=== PATIENT | female | born 1965 | race Caucasian/White ===

== ENCOUNTER 2017-05-09 07:53 | Inpatient (IN) | payer OTHER ==
[~2017-05-09] VITALS: Ht 160 cm; Wt 84.1 kg
[~2017-05-09 07:53] MED LIST: DIAZ5TAB4 PO; ESCI20TA PO; IBUP-1222 PO; LEVO50TA5 PO; LISI-167 PO
[2017-05-09] MEDS ORDERED: LACTATED RINGERS 1,000 ML IV SCH (08:02)
[2017-05-09] MEDS ORDERED: CEFAZOLIN 1,000 MG ONE (10:01)
[2017-05-09] MEDS ORDERED: BUPIVACAINE/PF 0.25% ONE (10:01)
[2017-05-09] MEDS ORDERED: PROPOFOL 50 ML ONE ×2 (10:01→12:04)
[2017-05-09] MEDS ORDERED: FENTANYL PF 100 MCG/2ML ONE ×2 (10:01→13:08)
[2017-05-09] MEDS ORDERED: ONDANSETRON 2MG/ML, 2ML ONE (10:01)
[2017-05-09] MEDS ORDERED: DEXAMETHASONE 4 MG/ML, 1ML ONE ×2 (10:01→10:03)
[2017-05-09] MEDS ORDERED: PROPOFOL 10 MG/ML, 20ML ONE (10:01)
[2017-05-09] MEDS ORDERED: LIDOCAINE-MPF 2% ,5ML ONE ×2 (10:01→12:05)
[2017-05-09] MEDS ORDERED: MIDAZOLAM 1 MG/ML, 2ML ONE (10:01)
[2017-05-09] MEDS ORDERED: KETOROLAC 60 MG/2 ML ONE (10:56)
[2017-05-09] MEDS ORDERED: SODIUM CHLORIDE 0.9% 100 ML ONE (10:56)
[2017-05-09] MEDS ORDERED: TRANEXAMIC ACID 100 MG/ML, 10ML ONE (10:56)
[2017-05-09] MEDS ORDERED: ROPivacaine/PF 0.2%, 10 ML ONE ×2 (10:56→10:58)
[2017-05-09] MEDS ORDERED: EPINEPHRINE 1 MG/ML, 1ML ONE (10:57)
[2017-05-09] MEDS: D5%-0.45% NACL 1,000 ML IV SCH ×2 (11:19→17:59)
[2017-05-09] MEDS ORDERED: KETAMINE 10 MG/ML, 20ML ONE (11:28)
[2017-05-09] MEDS ORDERED: HYDROmorphone 2 MG/ML, 1ML ONE (11:29)
[2017-05-09] MEDS ORDERED: HYDROmorphone 1 MG/ML, 1ML IV PRN ×2 (11:30→12:00)
[2017-05-09] MEDS ORDERED: ONDANSETRON 4 MG TABLET PO PRN (11:30)
[2017-05-09] MEDS: OXYcodone IR 5MG TABLET PO SCH ×3 (11:30→20:55)
[2017-05-09] MEDS ORDERED: BISACODYL 10 MG SUPP PR PRN (11:30)
[2017-05-09] MEDS ORDERED: DIPHENHYDRAMINE 50 MG CAPSULE PO PRN (11:30)
[2017-05-09] MEDS ORDERED: ZOLPIDEM 5MG TABLET PO PRN (11:30)
[2017-05-09] MEDS ORDERED: ONDANSETRON 2MG/ML, 2ML IV PRN (11:30)
[2017-05-09] MEDS ORDERED: DIAZEPAM 5 MG TABLET PO PRN (11:30)
[2017-05-09] MEDS ORDERED: ALUMINUM/MAG/SIMETHICONE 30 ML UDC PO PRN (11:30)
[2017-05-09] MEDS ORDERED: PROMETHAZINE 12.5 MG SUPP PR PRN (11:30)
[2017-05-09] MEDS ORDERED: PROMETHAZINE 25 MG/ML, 1ML IM PRN (11:30)
[2017-05-09] MEDS ORDERED: OXYcodone IR 5MG TABLET PO PRN (11:30)
[2017-05-09] MEDS: ACETAMINOPHEN 500 MG TABLET PO SCH ×2 (11:30→20:55)
[2017-05-09] MEDS ORDERED: SENNA/DOCUSATE TABLET PO PRN (11:30)
[2017-05-09] MEDS ORDERED: MAGNESIUM HYDROXIDE 8%, 30ML UDC PO PRN (11:30)
[2017-05-09] MEDS ORDERED: ONDANSETRON 2MG/ML, 2ML IVPush PRN (12:00)
[2017-05-09] MEDS ORDERED: ALBUTEROL/IPRATROPIUM 2.5MG/0.5MG, 3 ML NPPB PRN (12:00)
[2017-05-09] MEDS ORDERED: KETOROLAC 30 MG/1 ML IV PRN (12:00)
[2017-05-09] MEDS ORDERED: ACETAMINOPHEN 325 MG TABLET PO PRN (12:00)
[2017-05-09] MEDS ORDERED: OXYcodone 5 MG/5 ML ORAL.SOL UDC PO PRN (12:00)
[2017-05-09] MEDS ORDERED: MEPERIDINE/PF 25MG/0.5ML IVPush PRN (12:00)
[2017-05-09] MEDS ORDERED: DIAZEPAM 5 MG/ML, 2ML IVPush PRN (12:00)
[2017-05-09] MEDS ORDERED: PROMETHAZINE 25 MG/ML, 1ML IV PRN (12:00)
[2017-05-09] MEDS ORDERED: hydrALAzine 20 MG/ML, 1ML IV PRN (12:00)
[2017-05-09] MEDS ORDERED: MIDAZOLAM 1 MG/ML, 2ML IV PRN (12:00)
[2017-05-09] MEDS ORDERED: LABETALOL 5MG/ML, 20ML IV PRN (12:00)
[2017-05-09] MEDS ORDERED: FENTANYL PF 100 MCG/2ML IV PRN (12:00)
[2017-05-09] MEDS ORDERED: KETOROLAC 30 MG/1 ML ONE (12:03)
[2017-05-09] MEDS ORDERED: LABETALOL 5MG/ML, 20ML ONE (13:07)
[2017-05-09] MEDS ORDERED: ACETAMINOPHEN 650 MG/20.3 ML UDC ONE (13:07)
[2017-05-09] MEDS ORDERED: OXYcodone 5 MG/5 ML ORAL.SOL UDC ONE (13:07)
[2017-05-09] MEDS: TAMSULOSIN 0.4 MG CAP.ER.24H PO SCH ×2 (13:30→18:30)
[2017-05-09] MEDS ORDERED: TRANEXAMIC ACID 1,000 MG in SODIUM CHLORIDE 0.9% 100 ML IVPB ONE (13:30)
[2017-05-09] MEDS ORDERED: WINE PO SCH (18:00)
[2017-05-09] MEDS: ASPIRIN 81 MG TABLET EC PO SCH (18:26)
[2017-05-09] MEDS: CEFAZOLIN PMX 2GM/50ML 50 ML IVPB SCH (19:27)
[2017-05-09] MEDS: DOCUSATE 100 MG CAPSULE PO SCH (20:56)
[2017-05-09 21:15] VITALS: BP 119/76
[2017-05-09 23:44] VITALS: BP 120/70
[2017-05-10] MEDS: D5%-0.45% NACL 1,000 ML IV SCH ×2 (00:39→07:04)
[2017-05-10] MEDS: OXYcodone IR 5MG TABLET PO SCH ×3 (01:00→09:25)
[2017-05-10] MEDS: CEFAZOLIN PMX 2GM/50ML 50 ML IVPB SCH (03:17)
[2017-05-10 03:31] VITALS: BP 123/78
[2017-05-10 05:09] LABS: HEMOGLOBIN 11.8 g/dL (11.7-16.4)
[2017-05-10] MEDS: ACETAMINOPHEN 500 MG TABLET PO SCH (05:53)
[2017-05-10] MEDS: ASPIRIN 81 MG TABLET EC PO SCH (05:53)
[2017-05-10] MEDS: LEVOTHYROXINE 50 MCG TABLET PO SCH ×2 (05:53→09:27)
[2017-05-10] MEDS ORDERED: DEXAMETHASONE 4 MG/ML, 1ML IVPush SCH (06:00)
[2017-05-10 07:12] VITALS: BP 123/78
[2017-05-10] MEDS ORDERED: LISINOPRIL 10 MG TABLET PO SCH (09:00)
[2017-05-10] MEDS ORDERED: CITALOPRAM 20 MG TABLET PO SCH (09:00)
[2017-05-10] MEDS ORDERED: MULTIVITAMINS/MINERALS TABLET PO SCH (09:00)
[2017-05-10] MEDS: DOCUSATE 100 MG CAPSULE PO SCH (09:26)
[2017-05-10] MEDS: TAMSULOSIN 0.4 MG CAP.ER.24H PO SCH (09:27)
[2017-05-10] MEDS ORDERED: OXYC5CAP2 PO (09:43)
[2017-05-10] MEDS ORDERED: KETOROLAC 30 MG/1 ML IV SCH (11:30)
== END 2017-05-10 12:10 | disposition home or self-care (01) | DRG 470 ==
LOC: ORIP 07:53 → 4NOR 14:12 → DCLOUNGE 05-10 11:45
PROVIDERS: ADMIT Orthopaedic Surgery; ATTEND Orthopaedic Surgery
PROC: 0SRC0J9 Replacement of Right Knee Joint with Synthetic Substitute, Cemented, Open Approach (ICD-10-PCS; principal; 2017-05-09 11:00)
DX: M12.561 Traumatic arthropathy, right knee (principal); E03.9 Hypothyroidism, unspecified; M17.11 Unilateral primary osteoarthritis, right knee; Z60.2 Problems related to living alone; I10 Essential (primary) hypertension; F32.9 Major depressive disorder, single episode, unspecified; F10.20 Alcohol dependence, uncomplicated; Z79.899 Other long term (current) drug therapy
CPT/HCPCS: 36415; 85014; 85018; C1713; J0171; J0690; J1100; J1170; J1885; J2250; J2405; J2704; J2795; J3010; J3490; C1776